=== PATIENT | male | born 1990 | race Caucasian/White ===

== ENCOUNTER → 2016-12-28 | Outpatient (CLI) | payer BC ==
[2016-12-28 08:54] LABS: CHLORIDE,CL 104 mmol/L (98-110); SODIUM,NA 142 mmol/L (136-146)
== END ==
LOC: MW.CHFP 07:39
PROVIDERS: ATTEND Family Medicine
DX: Z00.00 Encounter for general adult medical examination without abnormal findings (principal); N63 Unspecified lump in breast; R42 Dizziness and giddiness; K63.89 Other specified diseases of intestine; R41.82 Altered mental status, unspecified
CPT/HCPCS: 36415; 80053; 80061; 80307; 82607; 82652; 82670; 82746; 83001; 83002; 83036; 83525; 83550; 84146; 84402; 84443; 85027